=== PATIENT | female | born 1980 | race Caucasian/White ===

== ENCOUNTER 2023-09-03 03:17 | Emergency (ER) | payer MEDICAID, SELFPAY ==
[2023-09-03 03:18] VITALS: BP 133/85; PULSE 73; RESP 16; TEMP 36.6; O2SAT 99; BMI 33.2
--- NOTE | 2023-09-03 03:39 | CT_ITS ---
EXAM: CT ABDOMEN AND PELVIS WITH INTRAVENOUS CONTRAST CLINICAL INDICATION: right sided abd pain, hx PBC TECHNIQUE: Helically acquired images were obtained of the abdomen and pelvis with intravenous contrast. This CT exam was performed using one or more of the following dose reduction techniques: automated exposure control, adjustment of the mA and/or kV according to patient size, and/or use of iterative reconstruction technique. CONTRAST: IV 100mL Isovue-370 RADIATION DOSE: Total DLP: 1237.11 mGy-cm. COMPARISON: CT of 11/28/2011. FINDINGS: LOWER THORAX: Minimal incidental dependent atelectasis noted at the lung bases. No significant pericardial effusion. ABDOMEN: LIVER: Unremarkable. Homogeneous. No focal mass. GALLBLADDER AND BILE DUCTS: Gallbladder is not visualized. No biliary ductal dilatation or calcified common duct stone. PANCREAS: Unremarkable. No focal cystic or solid mass. SPLEEN: Unremarkable. Normal size without focal cystic or solid mass. ADRENALS: Unremarkable. No nodules. KIDNEYS AND URETERS: Unremarkable. Normal renal size and position. No hydronephrosis. No renal or obstructing ureteral stones. No perirenal stranding. STOMACH AND BOWEL: Previous weight loss surgery. No periduodenal inflammatory changes or distended small bowel loops. Colon is elongated and redundant, and contains a moderate amount of formed stool. No findings of small bowel obstruction, diverticulitis or colitis. PELVIS: APPENDIX: Absent appendix. BLADDER: Partially distended urinary bladder is unremarkable. REPRODUCTIVE: Uterus is normal in size with a centrally positioned IUD. In the right adnexal region is a 1.8 cm thick-walled ring-enhancing fluid collection indicating an involuting ovarian cyst. No left adnexal abnormality identified. ABDOMEN and PELVIS: INTRAPERITONEAL SPACE: Unremarkable. No ascites or other fluid collection. No free air. BONES/JOINTS: Severe lumbar facet arthritis is present with a left-sided pars defect at L5. There is grade 1 spondylolisthesis of L5 on S1. Lower thoracic degenerative spurring. Severe degenerative disc space narrowing with endplate sclerosis and marginal osteophytes at the L3/4 and L5/S1 levels; the L5/S1 disc space is more narrowed than L3/4, and demonstrates vacuum disc phenomenon. No suspicious lytic or blastic abnormality. SOFT TISSUES: Unremarkable. No discrete abdominal or pelvic wall hernia. VASCULATURE: Unremarkable. Abdominal aorta is non-dilated. LYMPH NODES: Unremarkable. No enlarged lymph nodes. CT/Abdomen/Pelvis W IV Cont ONLY IMPRESSION: 1.8 cm involuting right ovarian cyst. Previous appendectomy. Previous weight loss surgery. No findings of small bowel obstruction or obstructive uropathy. Electronically Signed: Luis Manuel Orr MD at 5:34 EDT ,
[2023-09-03 03:45] LABS: Absolute Lymphocyte Count 3.57 X10^3/uL (0.83-4.51); Absolute Neutrophil Count 4.5 X10^3/uL (2.0-7.7); Basophil# 0.04 X10^3/uL; Basophil% 0.5 % (0-1); Eosinophil# 0.08 X10^3/uL; Eosinophils% 0.9 % (0-5); Hemoglobin 12.2 g/dL (12.0-15.0); Lymphocyte # 3.57 X10^3/ul (0.83-4.51); Lymphocyte % 40.3 % (19-41); Mean Corp Hgb Conc 33.9 g/dL (32-36); Mean Corpuscular Hgb 31.9 pg (27.0-32.0); Mean Platelet Vol. 9.3 fl (6.2-12.0); Monocyte# 0.61 X10^3/uL; Monocyte% 6.9 % (0-10); NRBC Flagged by Analyzer 0 % (0-5); Neutrophil # 4.54 X10^3/uL (2.7-7.7); Neutrophil % 51.2 % (47-70); Platelet Count 317 K/mm3 (150-450); RBC Distribution Width CV 12.2 % (11.6-14.6); RBC Distribution Width SD 42.1 fl (35.1-43.9); Red Blood Count 3.83 M/mm3 (4.2-5.4); White Blood Count 8.9 K/mm3 (4.4-11.0)
[2023-09-03] MEDS: Morphine 4 MG/ML Syringe IV (03:49)
[2023-09-03] MEDS: Ondansetron 4 MG/2 ML Vial IV (03:49)
[2023-09-03] MEDS: 0.9% Normal Saline (1000mL) 1,000 ML 125 ML IV (03:50)
--- NOTE | 2023-09-03 03:50 | EDS_ITS ---
HPI HPI - GI History of Present Illness Chief Complaint: Abd Pain Informant: patient Abdominal Pain/Flank Pain Onset: Days (4) Context: Gradual Onset Timing: Continuous Quality: Aching Location: - (Right side) Current Severity: Severe Maximum Severity: Severe Worsened by: Food (Possibly at times) Relieved by: Nothing Nausea/Vomiting/Emesis GI Symptom: Positive for Nausea; Negative for Vomiting Diarrhea/Melena/Hematochezia GI Symptom: Negative for Diarrhea or Hematochezia Associated Symptoms Associated Symptoms: Positive for Dysuria (Inconsistently in the last several days); Negative for Frequency or Hematuria Narrative Narrative: Patient has a history of primary biliary cirrhosis, has had prior appendectomy, cholecystectomy, states she has had pain like she is experiencing now in the past that has resolved but this is much worse and more persistent than it has ever been before. It is in the right mid abdomen. Some nausea but no vomiting. No fevers or chills, confusion, jaundice, pruritus. [facility] Medical History (Updated 09/03/23 @ 06:[address] Mo Reich MD) Primary biliary cirrhosis Home Medications cholecalciferol (vitamin D3) 50 mcg (2,000 unit) capsule (D3-2000) 50 mcg PO DAILY 09/03/23 [History Last Taken Unknown] dicyclomine 10 mg capsule 20 mg (2 x 10 mg) PO Q6H PRN PRN abdominal pain #24 CAPSULES 09/03/23 [Rx Last Taken Unknown] duloxetine 60 mg capsule,delayed release (Cymbalta) 60 mg PO DAILY 09/03/23 [History Last Taken Unknown] hydrocodone-acetaminophen 5-325mg 5mg-325mg 1 tab PO Q6H PRN PRN Pain 3 days #10 TABLETS 09/03/23 [Rx Last Taken Unknown] levothyroxine 137 mcg tablet (Euthyrox) 137 mcg PO DAILY 09/03/23 [History Last Taken Unknown] oixranat-fwccpevs-zxdg 45 mg-folic acid 800 mcg-vit K 120 mcg capsule (Bariatric Multivitamins) 1 cap PO DAILY 09/03/23 [History Last Taken Unknown] ursodiol 500 mg tablet (JAMIE Forte) 1,000 mg PO BID 09/03/23 [History Last Taken Unknown] Allergy/AdvReac Type Severity Reaction Status Date / Time No Known Allergies Allergy Verified 09/03/23 03:24 Surgical History (Updated 09/03/23 @ 03:[address] Mo Reich MD) History of Sol-en-Y gastric bypass History of thyroidectomy Hx of appendectomy Hx of cholecystectomy Social History Smoking Status: Never smoker ROS ROS ED Constitutional Constitutional ED: Denies chills or fever(s) Eyes Eyes: Denies change in vision or diplopia ENT ENT ED: Denies rhinorrhea or sore throat Cardiovascular Cardiovascular: Denies chest pain or palpitations Respiratory/Chest Respiratory/Chest: Denies cough or dyspnea Gastrointestinal Gastrointestinal: Reports abdominal pain and nausea; Denies diarrhea or vomiting Genitourinary Genitourinary ED: Denies dysuria or hematuria Musculoskeletal Musculoskeletal: Denies back pain or neck pain Integumentary Denies abscess or rash Neurologic Neurologic: Denies headache(s), paresthesias or weakness Psychiatric Psychiatric: Denies anxiety or suicidal thoughts EXAM Physical Exam Const Vital Signs: 09/03/23 03:18 Temperature 97.9 F Temperature Source Temporal Pulse Rate 73 Respiratory Rate 16 Blood Pressure 133/85 H Blood Pressure Mean 101 Pulse Ox 99 Oxygen Delivery Method Room Air Positive well nourished and well developed General Appearance ED: well developed and NAD HEENT Reports moist mucous membranes normocephalic and atraumatic Eyes PERRL and EOMs intact bilaterally Neck full ROM and supple Resp normal respiratory effort and clear to auscultation bilaterally Cardio regular rate, regular rhythm and no murmurs GI non-distended GI Narrative: Tender throughout the right side of the abdomen but mostly in the right mid abdomen. Negative Benson. No guarding or rebound tenderness. No pulsatile mass. Normal on inspection no Rajat sign or Rosenbaum Verma sign. Auscultation: normoactive bowel sounds Palpation: soft Back/Spine no CVA tenderness General Back: other FROM Extremity normal to inspection General Extremety ED: Negative for edema, pulses abnormal or tenderness General Extremity: Negative for edema or pulses abnormal Neuro oriented x3, CN's II-XII intact bilaterally and no sensory deficits noted Sensorium / Orientation: awake and alert Motor Exam: strength 5/5 throughout Skin no rashes or lesions noted and no wounds MDM MDM MDM Narrative Medical decision making narrative: Labs obtained and noted, her liver enzymes and lipase are all normal, she has no significant leukocytosis. Differential does include hepatic and biliary etiologies in addition to bowel obstruction, functional GI etiologies, colitis right-sided, kidney stone, so I think CT is indicated for this reason. I reviewed the images and the report which I agree with, it is an IV contrasted CT basically shows no acute inflammatory abnormalities to plan the patient's pain. It is noted that she is a 1.8 cm right ovarian involuting cyst that may or may not be related to her pain, as there is no free fluid present to suggest an acute rupture recently. I do not think she has torsion given the history and t he gradual onset of this. The majority of her tenderness is in the right mid abdomen, quite superior to the pelvis. Given this I do not think she needs an emergent ultrasound of her ovary to look at blood flow. She is doing much better after getting a dose of morphine and some Zofran and is keenly alert, she is comfortable going home with a prescription for analgesics. It is considered that this may or may not be related to her primary biliary cirrhosis but at this time I see no acute hepatic complication that suggest admission is indicated. Lab Data Attestation: I reviewed the patient's lab results. Labs: Laboratory Results - last 24 hr 09/03/23 09/03/23 03:26 03:55 WBC 8.9 RBC 3.83 L Hgb 12.2 Hct 36.0 L MCV 94.0 MCH 31.9 MCHC 33.9 RDW Std Deviation 42.1 RDW Coeff of Sonali 12.2 Plt Count 317 MPV 9.3 Immature Gran % (Auto) 0.200 Neut % (Auto) 51.2 Lymph % (Auto) 40.3 Forrest % (Auto) 6.9 Eos % (Auto) 0.9 Baso % (Auto) 0.5 Absolute Neuts (auto) 4.5 Absolute Lymphs (auto) 3.57 Nucleated RBC % 0 Sodium 139 Potassium 3.6 Chloride 107 Carbon Dioxide 26.0 Anion Gap 6 BUN 14 Creatinine 0.63 Estim Creat Clear Calc 143.34 Est GFR (MDRD) Af Amer 131 Est GFR (MDRD) Non-Af 108 BUN/Creatinine Ratio 22.1 H Glucose 106 Calcium 8.7 Total Bilirubin 0.60 AST 21 ALT 23 Alkaline Phosphatase 115 Total Protein 6.8 Albumin 3.5 Globulin 3.3 Albumin/Globulin Ratio 1.1 Lipase 39 Urine Color Yellow Urine Clarity Clear Urine pH 6.5 Ur Specific [place] 1.010 Urine Protein Negative Urine Glucose (UA) Normal Urine Ketones Negative Urine Occult Blood 25 H Urine Nitrite Negative Urine Bilirubin Negative Urine Urobilinogen 1 H Ur Leukocyte Esterase 25 H Urine RBC 0 SEEN Urine WBC 0 SEEN Ur Squamous Epith Cells 0-5 SEEN Urine Bacteria 0 SEEN Urine Mucus 0 SEEN Radiography Diagnostic Testing: Clinical Impression(s) from Imaging Studies Abdomen/Pelvis CT 09/03/23 03:39 IMPRESSION: 1.8 cm involuting right ovarian cyst. Previous appendectomy. Previous weight loss surgery. No findings of small bowel obstruction or obstructive uropathy. Electronically Signed: Luis Manuel Orr MD at 5:34 EDT , Discharge Plan Triage Chief Complaint: Abd Pain ED Provider: Mo Reich Dx/Rx/DC Orders Clinical Impression: Right sided abdominal pain Instructions: Abdominal Pain Prescriptions: New dicyclomine 10 mg capsule 20 mg PO Q6H PRN PRN (Reason: abdominal pain) Qty: 24 0RF hydrocodone-acetaminophen [hydrocodone-acetaminophen] 5-325 mg tablet 1 tab PO Q6H PRN PRN (Reason: Pain) 3 Days Qty: 10 0RF No Action levothyroxine [Euthyrox] 137 mcg tablet 137 mcg PO DAILY duloxetine [Cymbalta] 60 mg capsule,delayed release(DR/EC) 60 mg PO DAILY ursodiol [JAMIE Forte] 500 mg tablet 1,000 mg PO BID cholecalciferol (vitamin D3) [D3-2000] 50 mcg (2,000 unit) capsule 50 mcg PO DAILY Bariatric Multivitamins 45 mg iron- 800 mcg-120 mcg capsule 1 cap PO DAILY Primary Care Provider: Care Physician,No Primary Referrals: Rosa Maria Guzmán MD [Med Staff - [employer]] - 3-5 Days if not improving Disposition Disposition: Home, Self Care
[2023-09-03 04:00] LABS: Bacteria 0 SEEN /hpf (None Seen); Mucous, Urine 0 SEEN /hpf (<or=2+); Red Blood Cells-Urine 0 SEEN /hpf (0-5); White Blood Cells 0 SEEN /hpf (0-5)
[2023-09-03 04:01] LABS: Color, Urine Yellow (Yellow); Glucose, Dipstick Normal (Normal); Ketone-Dipstick Negative (Negative); Leukocyte Esterase-Dipstick 25 /ul (Negative); Nitrite-Dipstick Negative (Negative); Occult Blood-Urine 25 /ul (Negative); Protein-Dipstick Negative (Negative); Urine Bilirubin Dipstick Negative (Negative); Urine Clarity Clear (Clear); Urine Urobilinogen 1 mg/dl (Normal); Urine pH 6.5 (5.0 - 8.0)
[2023-09-03 04:08] LABS: ALB/GLOB Ratio 1.1 RATIO (0.9-2.4); AST(SGOT) 21 U/L (15-37); Alanine Aminotransfer ALT/SGPT 23 U/L (13-56); Albumin, Serum 3.5 g/dL (3.2-5.0); Alkaline Phosphatase 115 U/L (45-117); Anion Gap 6 (5-15); BUN 14 mg/dL (7-18); BUN/Creat Ratio 22.1 RATIO (10-20); Calcium,Total 8.7 mg/dL (8.5-10.1); Chloride 107 mmol/L (98-107); Creatinine, Serum 0.63 mg/dL (0.55-1.02); EST Glomerular Filtration Rate 108 mL/min (>60); Est Glom Filt Rate - Afr Amer 131 mL/min (>60); Estimated Creatinine Clearance 143.34 ml/min; Globulin 3.3 g/dL (2.2-4.2); Glucose 106 mg/dL (74-106); Lipase 39 U/L (13-75); Potassium 3.6 mmol/L (3.5-5.1); Protein, Total 6.8 g/dL (6.4-8.2); Sodium Level 139 mmol/L (136-145)
[2023-09-03 04:13] LABS: Squamous Epithelial Cells - UA 0-5 SEEN /hpf (5-10)
[2023-09-03 05:18] VITALS: BP 112/76; PULSE 63; TEMP 36.8; O2SAT 100
[2023-09-03 06:40] VITALS: BP 112/79; PULSE 63; RESP 16; TEMP 36.6; O2SAT 98
== END 2023-09-03 06:43 | disposition home or self-care (01) ==
PROVIDERS: Emergency Provider Emergency Medicine; Visit Provider Emergency Medicine
DX: R10.11 Right upper quadrant pain (principal); R10.31 Right lower quadrant pain; Z90.49 Acquired absence of other specified parts of digestive tract
CPT/HCPCS: 74177; 80053; 81001; 83690; 85025; 96361; 96374; 96375; 99283; J7030; Q9967; A4216; J2405